=== PATIENT | male | born 1960 | race Caucasian/White ===

== ENCOUNTER 2018-07-30 18:24 | Emergency (ER) | payer MEDICAID ==
[2018-07-30] MEDS ORDERED: predniSONE 20 MG Tab PO ONE (18:25)
[2018-07-30] MEDS ORDERED: Azithromycin 250 MG Tab PO ONE (18:25)
[2018-07-30] MEDS ORDERED: Albuterol/Ipratropium 3.0-0.5 MG/3 ML Neb Soln NEB ONE (18:35)
[2018-07-30] MEDS ORDERED: methylPREDNISolone Sodium Succinate 125 MG/2 ML SDV IVPUSH ONE (18:37)
--- NOTE | 2018-07-30 18:42 | EDM.PDOC ---
ED HPI GENERAL MEDICAL PROBLEM - General Stated Complaint: SOB Time Seen by Provider: 07/30/18 18:24 Source of Information: Reports: Patient, Family - History of Present Illness INITIAL COMMENTS - FREE TEXT/NARRATIVE: 57 y.o.w.m with COPD came to the ed due to cough and SOB. Pt is not on home O2. Was using an inhaler at home, which did not help his breathing. No C/P, no N/V/ D or dizziness. No other acute medical issues. BP 129/82 RR 28 Pulse ox 98% on RA Temp 37.4 Pulse 92 Onset: Today Onset Date: 07/30/18 Onset Time: 14:00 Duration: Hour(s):, Getting Worse, Intermittent Location: Reports: Chest Quality: Reports: Dull Severity: Mild Improves with: Reports: Medication, Rest Worsens with: Reports: Movement Context: Reports: Sick Contact, Other (H/O COPD) Associated Symptoms: Reports: Cough, Shortness of Breath - Related Data Allergies Allergy/AdvReac Type Severity Reaction Status Date / Time No Known Allergies Allergy Verified 07/31/18 01:22 Home Meds: Home Meds Albuterol [Proventil HFA] 2 puff INH Q4H PRN 04/20/18 [History] Albuterol/Ipratropium [DuoNeb 3.0-0.5 MG/3 ML] 3 ml .XX QID 04/20/18 [History] Doxepin HCl [Silenor] 3 mg PO BEDTIME PRN 04/20/18 [History] LORazepam [Ativan] 1 mg PO Q4H PRN 04/20/18 [History] Lisinopril [Prinivil] 5 mg PO DAILY 04/20/18 [History] Meloxicam [Mobic] 7.5 mg PO DAILY 04/20/18 [History] amLODIPine Besylate [Norvasc] 2.5 mg PO DAILY 04/20/18 [History] hydrOXYzine pamoate [Vistaril] 25 mg PO DAILY PRN 04/20/18 [History] metFORMIN [Glucophage] 500 mg PO BIDMEALS 04/20/18 [History] Acetaminophen/HYDROcodone [[place] 325-5 MG] 1 - 2 tab PO Q6H PRN #20 tab [Rx] Celecoxib [CeleBREX] 200 mg PO BID #10 cap 04/21/18 [Rx] Docusate Sodium [Colace] 100 mg PO BID #20 capsule 04/21/18 [Rx] Past Medical History HEENT History: Reports: None Cardiovascular History: Reports: Hypertension Respiratory History: Reports: Asthma, COPD, SOB Other Gastrointestinal History: HERNIA Genitourinary History: Reports: Renal Calculus 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 Musculoskeletal History: Reports: Back Pain, Chronic Neurological History: Reports: None Psychiatric History: Reports: Anxiety Endocrine/Metabolic History: Reports: Diabetes, Type II, Obesity/BMI 30+ Hematologic History: Reports: None Immunologic History: Reports: None Oncologic (Cancer) History: Reports: None Dermatologic History: Reports: None - Past Surgical History Head Surgeries/Procedures: Reports: None HEENT Surgical History: Reports: None Musculoskeletal Surgical History: Reports: Shoulder Surgery Social & Family History - Caffeine Use Caffeine Use: Reports: Soda ED ROS GENERAL - Review of Systems Review Of Systems: See Below Constitutional: Reports: No Symptoms HEENT: Reports: No Symptoms Respiratory: Reports: Shortness of Breath, Cough Cardiovascular: Reports: No Symptoms Endocrine: Reports: No Symptoms GI/Abdominal: Reports: No Symptoms : Reports: No Symptoms Musculoskeletal: Reports: No Symptoms Skin: Reports: No Symptoms Neurological: Reports: No Symptoms Psychiatric: Reports: No Symptoms Hematologic/Lymphatic: Reports: No Symptoms Immunologic: Reports: No Symptoms ED EXAM, GENERAL - Physical Exam Exam: See Below Exam Limited By: Respiratory Distress General Appearance: Alert, WD/WN, Mild Distress, Moderate Distress Eye Exam: Bilateral Eye: Normal Inspection Ears: Normal External Exam Ear Exam: Bilateral Ear: Auricle Normal Nose: Normal Inspection, Normal Mucosa Throat/Mouth: Normal Inspection, Normal Lips, Normal Voice, No Airway Compromise Head: Atraumatic, Normocephalic Neck: Normal Inspection, Supple, Non-Tender, Full Range of Motion Respiratory/Chest: Respiratory Distress, Wheezing Cardiovascular: Normal Peripheral Pulses, Regular Rate, Rhythm, No Edema, No Gallop, No Murmur Peripheral Pulses: 1+: Brachial (L) GI/Abdominal: Normal Bowel Sounds, Soft, Non-Tender, No Organomegaly (Male) Exam: Deferred Rectal (Males) Exam: Deferred Back Exam: Normal Inspection Extremities: Normal Inspection, Normal Range of Motion Neurological: Alert, Oriented, CN II-XII Intact, Normal Cognition, Normal Gait Psychiatric: Normal Affect, Normal Mood Skin Exam: Warm, Dry, Intact, Normal Color, No Rash Lymphatic: No Adenopathy Course - Vital Signs Text/Narrative:: 57 y.o.w.m with COPD came to the ed due to cough and SOB. Pt is not on home O2. Was using an inhaler at home, which did not help his breathing. No C/P, no N/V/ D or dizziness. No other acute medical issues. BP 129/82 RR 28 Pulse ox 98% on RA Temp 37.4 Pulse 92 PE: WNWD W M ins rep distress Imaging: Pending labs: Pending Impression: Asthma/ COPD exacerbation Tx: Duoneb, Solu Medrol Pt was signed out to Dr. Cowan at 7 pm due to shift changes pending Tx and CXR Last Recorded V/S: Last Vital Signs Temp 37.3 C 07/30/18 20:40 Pulse 79 07/30/18 20:40 Resp 20 07/30/18 20:40 BP 138/78 07/30/18 20:40 Pulse Ox 95 07/30/18 20:40 - Orders/Labs/Meds Orders: Active Orders 24 hr Category Date Time Status EKG Documentation Completion [RC] ASDIRECTED Care 07/30/18 19:30 Active EKG Documentation Completion [RC] ASDIRECTED Care 07/30/18 19:31 Active RT Aerosol Therapy [RC] ASDIRECTED Care 07/30/18 18:35 Active Chest 2V [CR] Stat Exams 07/30/18 19:12 Taken EKG 12 Lead [EK] Routine Ther 07/30/18 19:30 Ordered Labs: Laboratory Tests 07/30/18 07/30/18 07/30/18 Range/Units 19:50 19:50 19:50 WBC 10.2 (4.5-12.0) X10-3/uL RBC 4.85 (4.30-5.75) x10(6)uL Hgb 14.0 (11.5-15.5) g/dL Hct 42.3 (30.0-51.3) % MCV 87.2 (80-96) fL MCH 28.8 (27.7-33.6) pg MCHC 33.0 (32.2-35.4) g/dL RDW 12.8 (11.5-15.5) % Plt Count 315 (125-369) X10(3)uL MPV 8.7 (7.4-10.4) fL Neut % (Auto) 49.7 (46-82) % Lymph % (Auto) 36.0 (13-37) % [place] % (Auto) 8.7 (4-12) % Eos % (Auto) 4 (1.0-5.0) % Baso % (Auto) 1 (0-2) % Neut # (Auto) 5.1 (1.6-8.3) # Lymph # (Auto) 3.7 (0.6-5.0) # [place] # (Auto) 0.9 (0.0-1.3) # Eos # (Auto) 0.4 (0.0-0.8) # Baso # (Auto) 0.1 (0.0-0.2) # Sodium 141 (135-145) mmol/L Potassium 3.4 L (3.5-5.3) mmol/L Chloride 104 (100-110) mmol/L Carbon Dioxide 28 (21-32) mmol/L BUN 16 (7-18) mg/dL Creatinine 1.5 H (0.70-1.30) mg/dL Est Cr Clr Drug Dosing 52.57 mL/min Estimated GFR (MDRD) 48 L (>60) BUN/Creatinine Ratio 10.7 (9-20) Glucose 138 H (80-116) mg/dL Calcium 9.2 (8.6-10.2) mg/dL Total Bilirubin 0.3 (0.1-1.3) mg/dL AST 16 (5-25) IU/L ALT 28 (12-36) U/L Alkaline Phosphatase 104 (56-112) IU/L Troponin I < 0.017 L (<0.017-0.056) ng/mL C-Reactive Protein (0.5-0.9) mg/dL NT-Pro-B Natriuret Pep (<=125) pg/mL Total Protein 7.6 (6.0-8.0) g/dL Albumin 3.4 L (3.5-5.2) g/dL Globulin 4.2 g/dL Albumin/Globulin Ratio 0.8 07/30/18 Range/Units 19:50 WBC (4.5-12.0) X10-3/uL RBC (4.30-5.75) x10(6)uL Hgb (11.5-15.5) g/dL Hct (30.0-51.3) % MCV (80-96) fL MCH (27.7-33.6) pg MCHC (32.2-35.4) g/dL RDW (11.5-15.5) % Plt Count (125-369) X10(3)uL MPV (7.4-10.4) fL Neut % (Auto) (46-82) % Lymph % (Auto) (13-37) % [place] % (Auto) (4-12) % Eos % (Auto) (1.0-5.0) % Baso % (Auto) (0-2) % Neut # (Auto) (1.6-8.3) # Lymph # (Auto) (0.6-5.0) # [place] # (Auto) (0.0-1.3) # Eos # (Auto) (0.0-0.8) # Baso # (Auto) (0.0-0.2) # Sodium (135-145) mmol/L Potassium (3.5-5.3) mmol/L Chloride (100-110) mmol/L Carbon Dioxide (21-32) mmol/L BUN (7-18) mg/dL Creatinine (0.70-1.30) mg/dL Est Cr Clr Drug Dosing mL/min Estimated GFR (MDRD) (>60) BUN/Creatinine Ratio (9-20) Glucose (80-116) mg/dL Calcium (8.6-10.2) mg/dL Total Bilirubin (0.1-1.3) mg/dL AST (5-25) IU/L ALT (12-36) U/L Alkaline Phosphatase (56-112) IU/L Troponin I (<0.017-0.056) ng/mL C-Reactive Protein 0.8 (0.5-0.9) mg/dL NT-Pro-B Natriuret Pep 72 (<=125) pg/mL Total Protein (6.0-8.0) g/dL Albumin (3.5-5.2) g/dL Globulin g/dL Albumin/Globulin Ratio Meds: Medications Discontinued Medications Generic Name Dose Route Start Last Admin Trade Name Lisa PRN Reason Stop Dose Admin Albuterol/Ipratropium 3 ml 07/30/18 18:35 07/30/18 18:25 Duoneb 3.0-0.5 Mg/3 Ml NEB 07/30/18 18:36 3 ml ONETIME ONE Administration Methylprednisolone Sodium Succinate 125 mg 07/30/18 18:37 07/30/18 19:22 Solu-Medrol IVPUSH 07/30/18 18:38 125 mg ONETIME ONE Administration Departure - Departure Time of Disposition: 20:00 Disposition: Home, Self-Care 01 Condition: Good Clinical Impression: Asthma - Discharge Information Instructions: Chronic Obstructive Pulmonary Disease, [id number], Azithromycin tablets, Prednisone tablets Referrals: Seugn Zaldivar MD [Primary Care Provider] - 08/03/18 Forms: ED Department Discharge Additional Instructions: PRednisone 20 mg twice a day Zpak please take 2 tabs tonight and 1tab daily follow up with your primary care as needed - My Orders Last 24 Hours: My Active Orders 07/30/18 18:35 RT Aerosol Therapy [RC] ASDIRECTED 07/30/18 19:12 Chest 2V [CR] Stat - Assessment/Plan Last 24 Hours: My Active Orders 07/30/18 18:35 RT Aerosol Therapy [RC] ASDIRECTED 07/30/18 19:12 Chest 2V [CR] Stat
--- NOTE | 2018-07-31 08:17 | ER ---
DATE SEEN: 07/30/2018 REASON FOR VISIT: Cough. HISTORY OF PRESENT ILLNESS: This is an addendum to a patient, Martínez Ortega, whom Dr. Clayton had seen earlier. He came in with complaints of a cough, paroxysmal, nonproductive, going on about 2 to 3 days, associated with bronchospasm, and he has used nebulizer about 6 times today. He complains of no fever or chills, and is not short of breath. He does have some wheezing. PAST MEDICAL HISTORY: COPD. ALLERGIES: None. SOCIAL HISTORY: Smoker, quit several years ago. PHYSICAL EXAMINATION: GENERAL: He is not in distress. VITAL SIGNS: He has a normal blood pressure. Oxygenation is normal and temp is 99.4. ENT: Normal. NECK: Supple. CARDIOVASCULAR: Normal. RESPIRATORY: End-expiratory rhonchi bilaterally. LABS: CBC, troponin negative. Chest x-ray and EKG were normal. IMPRESSION: Chronic obstructive pulmonary disease exacerbation. TREATMENT: He was given 1 DuoNeb and Solu-Medrol. I sent him home on a Z-Bruno and prednisone. I advised him to see his physician on Friday. Return to the ED with worsening symptoms. /[id number] LAURA/BATSHEVA
--- NOTE | 2018-07-31 12:35 | CR ---
INDICATION: Cough, shortness of breath. CHEST: PA and lateral views of the chest were obtained 07/30/18 - no comparisons. The heart appeared normal in size and shape. Minimal calcification is noted in the arch of the aorta. A mild dextroconvex scoliosis of the upper middle thoracic spine is noted. A definite active infiltrate or effusion - consolidating pneumonia or effusion - was not identified. However, markings are somewhat heavy at the lung bases, making it difficult to exclude a minimal patchy bronchopneumonia. IMPRESSION: 1. No definite acute process but difficult to exclude minimal patchy bronchopneumonia at the lung bases. 2. Mild scoliosis. 3. ASD aorta. MTDD
== END 2018-07-30 20:42 | disposition home or self-care (01) ==
LOC: FB.ED 18:24
DX: J44.1 Chronic obstructive pulmonary disease with (acute) exacerbation (principal); Z87.891 Personal history of nicotine dependence
CPT/HCPCS: 36415; 71046; 80053; 83880; 84484; 85025; 86140; 93005; 94640; 96374; 99285; A9270; J2930; J7620-GY

== ENCOUNTER 2018-11-23 08:57 | Day surgery (SDC) | payer MEDICAID ==
[2018-11-23] MEDS ORDERED: Lidocaine 2% 100 MG/5 ML Syringe IVPUSH ONE (08:58)
[2018-11-23] MEDS ORDERED: Dexamethasone 4 MG/ML SDV IVPUSH ONE (08:58)
[2018-11-23] MEDS ORDERED: Propofol 200 MG/20 ML SDV IV ONE (08:58)
[2018-11-23] MEDS ORDERED: Lactated Ringers 1,000 ML IV SCH (09:00)
[2018-11-23] MEDS ORDERED: Albuterol/Ipratropium 3.0-0.5 MG/3 ML Neb Soln NEB ONE (09:56)
--- NOTE | 2018-11-23 11:26 | PCM.OPNOTE ---
- General Post-Op/Procedure Note Date of Surgery/Procedure: 11/23/18 Operative Procedure(s): egd with bx. c scope with bx Findings: gastroduodenitis esophagitis descending colon polyp Pre Op Diagnosis: dysphagia. need for colon cancer screening Post-Op Diagnosis: gastroduodenitis. esophagitis. descending colon polyp Anesthesia Technique: MAC Primary Surgeon: Walter Jessica Anesthesia Provider: Wyatt Torrez ([facility] CRNA[facility]) Pathology: stomach duodenum and esophagus colon polyp Complications: None Condition: Good Free Text/Narrative:: see dictation
--- NOTE | 2018-11-23 17:01 | OR ---
DATE OF OPERATION: 11/23/2018 SURGEON: Walter Jessica MD PROCEDURE PERFORMED: EGD with cold forceps biopsy and colonoscopy with cold forceps biopsy. PREOPERATIVE DIAGNOSES: History of dysphagia and need for colon cancer screening. POSTOPERATIVE DIAGNOSES: Gastroduodenitis and esophagitis and a polyp of the descending colon. INDICATIONS FOR PROCEDURE: This is a 58-year-old white male who presented with the above-mentioned complaints. DESCRIPTION OF OPERATION: After an excellent IV sedation was administered, the bite block was inserted. The flexible endoscope was passed without difficulty down the patient's esophagus into the stomach. The stomach was insufflated, scope passed through the pylorus to the second portion of duodenum and slowly withdrawn. The following findings were noted. Friable duodenal mucosa noted, biopsied and submitted in a container. Some mild gastritis was noted in the area of the antrum. Biopsies were taken. Esophagus, GE junction measured approximately 40 cm. There was some evidence of some mild esophagitis and biopsies were taken. The remainder of the esophageal exam was unremarkable. The stomach was deflated, scope was removed. Our attention was turned to the colon. Digital rectal exam was performed. No marked abnormality was noted. Flexible colonoscope was inserted and advanced to the cecum. The prep was good. There were some areas of clear liquid that we had to aspirate, but we got a good view of the mucosa. The following findings were noted. Ascending colon, unremarkable. Transverse colon, unremarkable. Descending colon, small 5 mm polypoid lesion, biopsied and sent for permanent. Sigmoid and rectum, unremarkable. Colon was deflated, scope was removed. The patient tolerated the procedure well, was taken to recovery in good condition. Results by letter. /[id number] /MODL
== END 2018-11-23 12:31 | disposition home or self-care (01) ==
LOC: FB.SDS 08:57
PROVIDERS: ATTEND Surgery
DX: Z12.11 Encounter for screening for malignant neoplasm of colon (principal); D12.4 Benign neoplasm of descending colon; K29.80 Duodenitis without bleeding; K21.0 Gastro-esophageal reflux disease with esophagitis; K31.89 Other diseases of stomach and duodenum; I10 Essential (primary) hypertension; I25.10 Atherosclerotic heart disease of native coronary artery without angina pectoris; E11.9 Type 2 diabetes mellitus without complications; J44.9 Chronic obstructive pulmonary disease, unspecified; F41.9 Anxiety disorder, unspecified; M41.9 Scoliosis, unspecified; Z87.891 Personal history of nicotine dependence; Z79.1 Long term (current) use of non-steroidal anti-inflammatories (NSAID); Z79.51 Long term (current) use of inhaled steroids; Z79.84 Long term (current) use of oral hypoglycemic drugs; Z79.899 Other long term (current) drug therapy
CPT/HCPCS: 82962; 88305; 88313; 88342; J1100; J2001; J2704; J7120; J7620-GY

== ENCOUNTER 2019-01-20 10:03 | Observation (INO) | payer MEDICAID ==
[2019-01-20] MEDS ORDERED: methylPREDNISolone Sodium Succinate 125 MG/2 ML SDV IVPUSH ONE (10:24)
[2019-01-20] MEDS ORDERED: Albuterol/Ipratropium 3.0-0.5 MG/3 ML Neb Soln NEB ONE ×2 (10:24→11:53)
--- NOTE | 2019-01-20 10:26 | EDM.PDOC ---
ED HPI GENERAL MEDICAL PROBLEM - General Stated Complaint: CHEAT PAIN Time Seen by Provider: 01/20/19 10:03 Source of Information: Reports: Patient, EMS History Limitations: Reports: Respiratory Distress - History of Present Illness INITIAL COMMENTS - FREE TEXT/NARRATIVE: 58 y.o.w.m came to the ed because of CP and SOB by EMS. Pt is a poor historian. Pt can speak 3 word sentences. CP is located at the mid of his chest. No Trauma. Pt has H/O COPD. No N/V/D no other acute med. issues. BP RR 21 Pulse ox 95% on RA Pulse 85 Temp 36.4 Onset Date: 01/19/19 Onset Time: 16:00 Duration: Day(s):, Getting Worse, Intermittent Location: Reports: Chest Quality: Reports: Dull Severity: Moderate Improves with: Reports: Medication Worsens with: Reports: Movement Context: Reports: Other Associated Symptoms: Reports: Chest Pain, Cough, Shortness of Breath MID CHEST Pain Score (Numeric/FACES): 4 - Related Data Allergies Allergy/AdvReac Type Severity Reaction Status Date / Time No Known Allergies Allergy Verified 01/20/19 13:55 Home Meds: Home Meds Albuterol [Proventil HFA] 2 puff INH Q4H PRN 04/20/18 [History] Albuterol/Ipratropium [DuoNeb 3.0-0.5 MG/3 ML] 3 ml .XX QID PRN 04/20/18 [ History] Lisinopril [Prinivil] 5 mg PO DAILY 04/20/18 [History] amLODIPine Besylate [Norvasc] 2.5 mg PO DAILY 04/20/18 [History] hydrOXYzine pamoate [Vistaril] 25 - 50 mg PO DAILY PRN 04/20/18 [History] metFORMIN [Glucophage] 500 mg PO BIDMEALS 04/20/18 [History] Acetaminophen/HYDROcodone [[place] 325-5 MG] 1 - 2 tab PO Q6H PRN #20 tab [Rx] Budesonide/Formoterol Fumarate [Symbicort 80-4.5 Mcg Inhaler] 2 puff INH BID [History] Celecoxib [CeleBREX] 200 mg PO DAILY 11/19/18 [History] Pantoprazole [ProTONIX] 40 mg PO DAILY 01/20/19 [History] Past Medical History HEENT History: Reports: None Cardiovascular History: Reports: Hypertension Respiratory History: Reports: COPD Other Gastrointestinal History: HERNIA Genitourinary History: Reports: Renal Calculus 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 Musculoskeletal History: Reports: Back Pain, Chronic Neurological History: Reports: None Psychiatric History: Reports: Anxiety Endocrine/Metabolic History: Reports: Diabetes, Type II Hematologic History: Reports: None Immunologic History: Reports: None Oncologic (Cancer) History: Reports: None Dermatologic History: Reports: None - Past Surgical History GI Surgical History: Reports: Hernia Repair/Other Musculoskeletal Surgical History: Reports: Shoulder Surgery Social & Family History - Family History Family Medical History: Noncontributory - Caffeine Use Caffeine Use: Reports: Soda, Tea ED ROS GENERAL - Review of Systems Review Of Systems: See Below Constitutional: Reports: Weakness HEENT: Reports: No Symptoms Respiratory: Reports: Shortness of Breath Cardiovascular: Reports: Chest Pain Endocrine: Reports: No Symptoms GI/Abdominal: Reports: No Symptoms : Reports: No Symptoms Musculoskeletal: Reports: No Symptoms Skin: Reports: No Symptoms Neurological: Reports: No Symptoms Psychiatric: Reports: No Symptoms Hematologic/Lymphatic: Reports: No Symptoms Immunologic: Reports: No Symptoms ED EXAM, GENERAL - Physical Exam Exam: See Below Exam Limited By: Respiratory Distress General Appearance: Alert, WD/WN, Moderate Distress, Obese Eye Exam: Bilateral Eye: Normal Inspection Ears: Normal External Exam Ear Exam: Bilateral Ear: Auricle Normal Nose: Normal Inspection, Normal Mucosa Throat/Mouth: Normal Inspection, Normal Lips, Normal Voice, No Airway Compromise Head: Atraumatic, Normocephalic Neck: Normal Inspection, Supple, Non-Tender, Full Range of Motion Respiratory/Chest: Respiratory Distress, Decreased Breath Sounds, Rhonchi, Wheezing Cardiovascular: Normal Peripheral Pulses, Regular Rate, Rhythm, No Edema Peripheral Pulses: 2+: Brachial (R) GI/Abdominal: Normal Bowel Sounds, Soft, Non-Tender (Male) Exam: Deferred Rectal (Males) Exam: Deferred Back Exam: Normal Inspection, Full Range of Motion Extremities: Normal Inspection, Normal Range of Motion, Non-Tender Neurological: Alert, Oriented, CN II-XII Intact, Normal Cognition Psychiatric: Normal Affect, Normal Mood Skin Exam: Warm, Dry, Intact, Normal Color Lymphatic: No Adenopathy EKG INTERPRETATION EKG Date: 01/20/19 Time: 10:05 Rhythm: NSR Rate (Beats/Min): 74 [place]: Normal P-Wave: Present QRS: Normal ST-T: Normal QT: Normal Comparison: NA - No Prior EKG Course - Vital Signs Text/Narrative:: 58 y.o.w.m came to the ed because of CP and SOB by EMS. Pt is a poor historian. Pt can speak 3 word sentences. CP is located at the mid of his chest. No Trauma. Pt has H/O COPD. No N/V/D no other acute med. issues. BP 11/67 RR 21 Pulse ox 95% on RA Pulse 85 Temp 36.4 PE: Morbid obese 58 y.o w m with SOB and CP Imaging: CXR: NAD Labs: CBC, BMP nl except BUN was 19 Ca was 7.7 Troponin was 0.017 Impression: Atypical Chest pain, COPD exacerbation Tx: ASA, Nitro, Toradol, Duonebs x 2 Solumedrol Reexam: C/P 08/02. Resp minimally improved 12.55 pm Consultation: Dr. Estevez, Hospitalist: accepted the pt for admission Plan: Admit to [facility] Last Recorded V/S: Last Vital Signs Temp 36.6 C 01/20/19 13:16 Pulse 83 01/20/19 13:16 Resp 20 01/20/19 13:16 BP 118/72 01/20/19 13:16 Pulse Ox 96 01/20/19 13:16 - Orders/Labs/Meds Orders: Active Orders 24 hr Category Date Time Status Chest 1V Frontal [CR] Stat Exams 01/20/19 10:24 Taken Sodium Chloride 0.9% [Saline Flush] Med 01/20/19 10:49 Active 10 ml FLUSH ASDIRECTED PRN EKG 12 Lead [EK] Routine Ther 01/20/19 10:05 Ordered Medication Orders Sodium Chloride (Saline Flush) 10 ml FLUSH ASDIRECTED PRN PRN Reason: IV Use Last Admin: 01/20/19 12:12 Dose: 10 ml Admin: 01/20/19 10:45 Dose: 10 ml Labs: Laboratory Tests 01/20/19 01/20/19 01/20/19 Range/Units 10:05 10:05 10:05 WBC 8.0 (4.5-12.0) X10-3/uL RBC 4.62 (4.30-5.75) x10(6)uL Hgb 13.8 (13.5-17.8) g/dL Hct 40.6 (30.0-51.3) % MCV 87.8 (80-96) fL MCH 29.8 (27.7-33.6) pg MCHC 34.0 (32.2-35.4) g/dL RDW 12.6 (11.5-15.5) % Plt Count 251 (125-369) X10(3)uL MPV 9.0 (7.4-10.4) fL Neut % (Auto) 43.8 L (46-82) % Lymph % (Auto) 44.5 H (13-37) % [place] % (Auto) 8.0 (4-12) % Eos % (Auto) 3 (1.0-5.0) % Baso % (Auto) 1 (0-2) % Neut # (Auto) 3.5 (1.6-8.3) # Lymph # (Auto) 3.6 (0.6-5.0) # [place] # (Auto) 0.6 (0.0-1.3) # Eos # (Auto) 0.2 (0.0-0.8) # Baso # (Auto) 0.1 (0.0-0.2) # PT 9.7 (8.7-11.1) INR 1.00 (0.89-1.13) D-Dimer, Quantitative (0.0-0.59) mg/LFEU Sodium 143 (135-145) mmol/L Potassium 3.9 (3.5-5.3) mmol/L Chloride 108 (100-110) mmol/L Carbon Dioxide 27 (21-32) mmol/L BUN 19 H (7-18) mg/dL Creatinine 1.3 (0.70-1.30) mg/dL Est Cr Clr Drug Dosing 59.92 mL/min Estimated GFR (MDRD) 57 L (>60) BUN/Creatinine Ratio 14.6 (9-20) Glucose 103 (80-116) mg/dL Calcium 7.7 L (8.6-10.2) mg/dL Troponin I (<0.017-0.056) ng/mL 01/20/19 01/20/19 Range/Units 10:05 10:05 WBC (4.5-12.0) X10-3/uL RBC (4.30-5.75) x10(6)uL Hgb (13.5-17.8) g/dL Hct (30.0-51.3) % MCV (80-96) fL MCH (27.7-33.6) pg MCHC (32.2-35.4) g/dL RDW (11.5-15.5) % Plt Count (125-369) X10(3)uL MPV (7.4-10.4) fL Neut % (Auto) (46-82) % Lymph % (Auto) (13-37) % [place] % (Auto) (4-12) % Eos % (Auto) (1.0-5.0) % Baso % (Auto) (0-2) % Neut # (Auto) (1.6-8.3) # Lymph # (Auto) (0.6-5.0) # [place] # (Auto) (0.0-1.3) # Eos # (Auto) (0.0-0.8) # Baso # (Auto) (0.0-0.2) # PT (8.7-11.1) INR (0.89-1.13) D-Dimer, Quantitative 0.20 (0.0-0.59) mg/LFEU Sodium (135-145) mmol/L Potassium (3.5-5.3) mmol/L Chloride (100-110) mmol/L Carbon Dioxide (21-32) mmol/L BUN (7-18) mg/dL Creatinine (0.70-1.30) mg/dL Est Cr Clr Drug Dosing mL/min Estimated GFR (MDRD) (>60) BUN/Creatinine Ratio (9-20) Glucose (80-116) mg/dL Calcium (8.6-10.2) mg/dL Troponin I < 0.017 L (<0.017-0.056) ng/mL Meds: Medications Generic Name Dose Route Start Last Admin Trade Name Freq PRN Reason Stop Dose Admin Sodium Chloride 10 ml 01/20/19 10:49 01/20/19 12:12 Saline Flush FLUSH 10 ml ASDIRECTED PRN Administration IV Use Discontinued Medications Generic Name Dose Route Start Last Admin Trade Name Lisa PRN Reason Stop Dose Admin Albuterol/Ipratropium 3 ml 01/20/19 10:24 01/20/19 10:45 Duoneb 3.0-0.5 Mg/3 Ml NEB 01/20/19 10:25 3 ml ONETIME ONE Administration Albuterol/Ipratropium 3 ml 01/20/19 11:53 01/20/19 12:10 Duoneb 3.0-0.5 Mg/3 Ml NEB 01/20/19 11:54 3 ml ONETIME ONE Administration Calcium Carbonate/Glycine 1,000 mg 01/20/19 11:40 01/20/19 11:46 Tums PO 01/20/19 11:41 1,000 mg ONETIME ONE Administration Ketorolac Tromethamine 30 mg 01/20/19 11:55 01/20/19 12:12 Toradol IVPUSH 01/20/19 11:56 30 mg ONETIME ONE Administration Magnesium Chloride 64 mg 01/20/19 11:39 01/20/19 11:42 Mag-64 PO 01/20/19 11:40 Not Given ONETIME STA Methylprednisolone Sodium Succinate 125 mg 01/20/19 10:24 01/20/19 10:45 Solu-Medrol IVPUSH 01/20/19 10:25 125 mg ONETIME ONE Administration Nitroglycerin 1 gm 01/20/19 11:48 01/20/19 12:14 Nitro-Bid 2% TOP 01/20/19 11:49 1 gm ONETIME ONE Administration Departure - Departure Time of Disposition: 15:00 Disposition: Refer to Observation Condition: Fair Clinical Impression: COPD with exacerbation - My Orders Last 24 Hours: My Active Orders 01/20/19 10:05 EKG 12 Lead [EK] Routine 01/20/19 10:24 Chest 1V Frontal [CR] Stat 01/20/19 10:49 Sodium Chloride 0.9% [Saline Flush] 10 ml FLUSH ASDIRECTED PRN - Assessment/Plan Last 24 Hours: My Active Orders 01/20/19 10:05 EKG 12 Lead [EK] Routine 01/20/19 10:24 Chest 1V Frontal [CR] Stat 07/31/19 10:49 Sodium Chloride 0.9% [Saline Flush] 10 ml FLUSH ASDIRECTED PRN
[2019-01-20] MEDS: Sodium Chloride 0.9% 10 ML Syringe FLUSH PRN ×3 (10:45→20:40)
[2019-01-20] MEDS ORDERED: Magnesium Chloride 64 MG Tab.ER PO STA (11:39)
[2019-01-20] MEDS ORDERED: Calcium Carbonate 500 MG Tab.Chew PO ONE (11:40)
[2019-01-20] MEDS ORDERED: Nitroglycerin 2% Oint 1 GM UD Packet TOP ONE (11:48)
[2019-01-20] MEDS ORDERED: Ketorolac 30 MG/ML SDV IVPUSH ONE (11:55)
[2019-01-20] MEDS ORDERED: Albuterol 8 GM Inhaler INH PRN (15:22)
[2019-01-20] MEDS ORDERED: Albuterol/Ipratropium 3.0-0.5 MG/3 ML Neb Soln INH PRN (15:22)
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
[2019-01-20] MEDS: metFORMIN 500 MG Tab PO SCH (18:24)
[2019-01-20] MEDS: Formoterol/Mometasone 100-5 MCG 8.8 GM Inhaler IH SCH (20:35)
[2019-01-21] MEDS ORDERED: Morphine 2 MG/ML Syringe IVPUSH ONE (04:47)
[2019-01-21] MEDS: Sodium Chloride 0.9% 10 ML Syringe FLUSH PRN (05:07)
[2019-01-21] MEDS ORDERED: Pantoprazole 40 MG Tab.CR PO SCH (06:00)
[2019-01-21] MEDS ORDERED: Lisinopril 5 MG Tab PO SCH (09:00)
[2019-01-21] MEDS ORDERED: amLODIPine 2.5 MG Tab PO SCH (09:00)
[2019-01-21] MEDS ORDERED: Isosorbide Mononitrate 30 MG Tab.ER PO SCH (09:00)
[2019-01-21] MEDS: metFORMIN 500 MG Tab PO SCH (09:10)
[2019-01-21] MEDS: Formoterol/Mometasone 100-5 MCG 8.8 GM Inhaler IH SCH (09:10)
--- NOTE | 2019-01-21 19:47 | DISCH ---
DISCHARGE DATE: 01/21/2019 HISTORY: Martínez is a 58-year-old man with a longstanding history of COPD, chronic liver disease and unspecified arrhythmic heart problems. He was admitted through the ER because of awakening in the morning with substernal chest pain and shortness of breath. Evaluation with EKG and troponin in the ER was negative and it was felt to be lung related. He was admitted to observation care, treated with nebulizer treatments, and his outpatient medications continued. A nitroglycerin patch was applied, and his pain seemed to resolve. He spent a good night, but woke up this morning with similar substernal chest pain. He did not have significant shortness of breath with it. No nausea, sweats, etc. Repeat EKG and troponin are again negative and examination showed significant tenderness in the chest wall at the sternocostal joints 2 and 3 bilaterally. Remainder of his exam was quite unremarkable. He was up walking and comfortable. He was started on Imdur 30 mg daily and naproxen 500 mg b.i.d. along with his usual medications. After being up, he was deemed acceptable for discharge. Arrangements are made for him to have a followup stress test at [facility]. He is to check in with his regular doctor in the meantime if any significant recurrence of his chest pains. /[id number] AAKASH/BATSHEVA
== END 2019-01-21 11:30 | disposition home or self-care (01) ==
LOC: FB.ED 10:03 → FB.MS 12:55
PROVIDERS: ADMIT Family Medicine; ATTEND Family Medicine
DX: R07.2 Precordial pain (principal); I10 Essential (primary) hypertension; E11.9 Type 2 diabetes mellitus without complications; K21.9 Gastro-esophageal reflux disease without esophagitis; K70.9 Alcoholic liver disease, unspecified; M16.0 Bilateral primary osteoarthritis of hip; J43.9 Emphysema, unspecified; E66.01 Morbid (severe) obesity due to excess calories; Z68.30 Body mass index [BMI] 30.0-30.9, adult; Z87.891 Personal history of nicotine dependence; Z82.49 Family history of ischemic heart disease and other diseases of the circulatory system; Z79.51 Long term (current) use of inhaled steroids; Z79.84 Long term (current) use of oral hypoglycemic drugs; Z79.899 Other long term (current) drug therapy
CPT/HCPCS: 36415; 71045; 80048; 80076; 84484; 85025; 85379; 85610; 93005; 94640; 96374; 96375; 99285; A9270; G0378; J1885; J2270; J2930; J7620-GY

== ENCOUNTER 2019-01-30 15:11 | Emergency (ER) | payer MEDICAID ==
--- NOTE | 2019-01-30 15:35 | EDM.PDOC ---
ED HPI GENERAL MEDICAL PROBLEM - General Stated Complaint: CHEST PAIN Time Seen by Provider: 01/30/19 15:33 Source of Information: Reports: Patient History Limitations: Reports: No Limitations - History of Present Illness INITIAL COMMENTS - FREE TEXT/NARRATIVE: 58-year-old male with intermittent pressure type central chest pain that sometimes radiates through to his back which is been present for the past 2-2-1/ 2 weeks. He was admitted to the hospital here on 01/20/2019 for chest pain and ruled out for AK. It was felt that he had chest wall pain. He tells me that for the past 9-10 days he has continued to have intermittent pains in his central chest that radiates through to his back. He reports that at 3 AM, he was awakened with pain in the center of his chest that he reports is been a steady and constant /10 since 3 AM today. He does not feel that anything makes the pain better. He thinks the pain may be somewhat worse with deep breath but not with palpation or with movement. He has had nausea associated with this but no vomiting. There's been no diaphoresis. No increase in his usual shortness of breath. No cough. Above his normal cough and no fevers and chills. There are no other associated signs or symptoms. There are no other modifying factors. 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 OIL WELL: Reports: Other (see below) (Nothing) MID CHEST Pain Score (Numeric/FACES): 6 - Related Data Allergies Allergy/AdvReac Type Severity Reaction Status Date / Time No Known Allergies Allergy Verified 01/30/19 15:41 Home Meds: Home Meds Albuterol [Proventil HFA] 2 puff INH Q4H PRN 04/20/18 [History] Albuterol/Ipratropium [DuoNeb 3.0-0.5 MG/3 ML] 3 ml .XX QID PRN 04/20/18 [ History] Lisinopril [Prinivil] 5 mg PO DAILY 04/20/18 [History] amLODIPine Besylate [Norvasc] 2.5 mg PO DAILY 04/20/18 [History] metFORMIN [Glucophage] 500 mg PO BIDMEALS 04/20/18 [History] Budesonide/Formoterol Fumarate [Symbicort 80-4.5 Mcg Inhaler] 2 puff INH BID [History] Celecoxib [CeleBREX] 200 mg PO DAILY 11/19/18 [History] Pantoprazole [ProTONIX] 40 mg PO DAILY 01/20/19 [History] Isosorbide Mononitrate [Imdur] 30 mg PO DAILY #30 tab.er 01/21/19 [Rx] Past Medical History Cardiovascular History: Reports: High Cholesterol, Hypertension Respiratory History: Reports: COPD Gastrointestinal History: Reports: Other (See Below) (Alcohol related liver disease) Genitourinary History: Reports: Renal Calculus Musculoskeletal History: Reports: Back Pain, Chronic Psychiatric History: Reports: Addiction (Alcohol abuse in the past but has been sober for the past year.), Anxiety, Depression Endocrine/Metabolic History: Reports: Diabetes, Type II - Past Surgical History GI Surgical History: Reports: Hernia, Abdominal (Umbilical hernia repair) Musculoskeletal Surgical History: Reports: Shoulder Surgery (Left shoulder surgery) Social & Family History - Tobacco Use Smoking Status *Q: Former Smoker (Nonsmoker for the past 20 years.) - Caffeine Use Caffeine Use: Reports: Soda, Tea - Alcohol Use Alcohol Use History: Yes Alcohol Use Comment: Sober for the past one year. - Living Situation & Occupation Occupation: Retired Social History Comment: Here with his . He is originally from [place], [place]. ED ROS GENERAL - Review of Systems Review Of Systems: See Below Constitutional: Reports: No Symptoms HEENT: Reports: No Symptoms Respiratory: Reports: Shortness of Breath (Which is chronic.), Cough (Which is chronic.) Cardiovascular: Reports: Chest Pain GI/Abdominal: Reports: Nausea. Denies: Abdominal Pain, Vomiting : Reports: No Symptoms Musculoskeletal: Reports: Back Pain (Pain radiates from his chest to his mid back.) Skin: Reports: No Symptoms Neurological: Reports: No Symptoms Hematologic/Lymphatic: Reports: No Symptoms Immunologic: Reports: No Symptoms ED EXAM, GENERAL - Physical Exam Exam: See Below Exam Limited By: No Limitations General Appearance: Alert, WD/WN, Mild Distress Eye Exam: Bilateral Eye: EOMI, Normal Inspection Ears: Normal External Exam Ear Exam: Bilateral Ear: Auricle Normal Nose: Normal Inspection, Normal Mucosa, No Blood Throat/Mouth: Normal Inspection, Normal Oropharynx, Normal Voice, No Airway Compromise Head: Atraumatic, Normocephalic Neck: Normal Inspection, Supple, Non-Tender, Full Range of Motion Respiratory/Chest: No Respiratory Distress, Normal Breath Sounds, No Accessory Muscle Use, Wheezing (Few scattered wheezes that clear with cough. No increased work of breathing.) Cardiovascular: Normal Peripheral Pulses, Regular Rate, Rhythm, No Edema, Other (Chest is mildly tender with palpation along his sternal border and in his lower chest.) Peripheral Pulses: 2+: Radial (L), Radial (R), Dorsalis Pedis (L), Dorsalis Pedis (R) GI/Abdominal: Normal Bowel Sounds, Soft, Non-Tender, No Mass Back Exam: Normal Inspection, Full Range of Motion Extremities: Normal Inspection, Normal Range of Motion, Non-Tender, No Pedal Edema, Normal Capillary Refill Neurological: Alert, Oriented, CN II-XII Intact, Normal Cognition, No Motor/ Sensory Deficits Psychiatric: Normal Affect Skin Exam: Warm, Dry, Intact, Normal Color, No Rash EKG INTERPRETATION EKG Date: 01/30/19 Time: 15:17 Rhythm: NSR Rate (Beats/Min): 73 Hessel: Normal P-Wave: Present QRS: Normal ST-T: Normal QT: Normal Comparison: No Change (No change from EKG performed on 01/20/2019. This EKG today was a normal EKG.) Course - Vital Signs Last Recorded V/S: Last Vital Signs Temp 36.6 C 01/30/19 15:12 Pulse 79 01/30/19 15:12 Resp 17 01/30/19 15:12 BP 118/80 01/30/19 15:12 Pulse Ox 97 01/30/19 15:12 - Orders/Labs/Meds Orders: Active Orders 24 hr Category Date Time Status EKG Documentation Completion [RC] ASDIRECTED Care 01/30/19 16:06 Active Chest 1V Frontal [CR] Stat Exams 01/30/19 16:09 Taken Sodium Chloride 0.9% [Saline Flush] Med 01/30/19 16:05 Active 10 ml FLUSH ASDIRECTED PRN Peripheral IV Insertion Adult [OM.PC] Routine Oth 01/30/19 16:05 Ordered EKG 12 Lead [EK] Routine Ther 01/30/19 16:05 Ordered Medication Orders Sodium Chloride (Saline Flush) 10 ml FLUSH ASDIRECTED PRN PRN Reason: Keep Vein Open Last Admin: 01/30/19 16:25 Dose: 10 ml Labs: Laboratory Tests 01/30/19 01/30/19 01/30/19 Range/Units 16:25 16:25 16:25 WBC 7.2 (4.5-12.0) X10-3/uL RBC 4.86 (4.30-5.75) x10(6)uL Hgb 14.6 (13.5-17.8) g/dL Hct 43.2 (30.0-51.3) % MCV 88.9 (80-96) fL MCH 30.0 (27.7-33.6) pg MCHC 33.8 (32.2-35.4) g/dL RDW 12.9 (11.5-15.5) % Plt Count 260 (125-369) X10(3)uL MPV 8.8 (7.4-10.4) fL Neut % (Auto) 55.6 (46-82) % Lymph % (Auto) 28.2 (13-37) % [place] % (Auto) 10.3 (4-12) % Eos % (Auto) 2 (1.0-5.0) % Baso % (Auto) 4 H (0-2) % Neut # (Auto) 4.1 (1.6-8.3) # Lymph # (Auto) 2.0 (0.6-5.0) # [place] # (Auto) 0.7 (0.0-1.3) # Eos # (Auto) 0.1 (0.0-0.8) # Baso # (Auto) 0.3 H (0.0-0.2) # PT (8.7-11.1) INR (0.89-1.13) APTT 24.3 L (24.4-33.2) SECONDS D-Dimer, Quantitative 0.44 (0.0-0.59) mg/LFEU Sodium 145 (135-145) mmol/L Potassium 4.4 (3.5-5.3) mmol/L Chloride 108 (100-110) mmol/L Carbon Dioxide 27 (21-32) mmol/L BUN 17 (7-18) mg/dL Creatinine 1.3 (0.70-1.30) mg/dL Est Cr Clr Drug Dosing 59.92 mL/min Estimated GFR (MDRD) 57 L (>60) BUN/Creatinine Ratio 13.1 (9-20) Glucose 100 (80-116) mg/dL Calcium 9.4 (8.6-10.2) mg/dL Magnesium 2.1 (1.8-2.5) mg/dL Total Bilirubin 0.4 (0.1-1.3) mg/dL AST 23 D (5-25) IU/L ALT 35 (12-36) U/L Alkaline Phosphatase 99 (56-112) IU/L Troponin I (<0.017-0.056) ng/mL Total Protein 7.6 (6.0-8.0) g/dL Albumin 3.5 (3.5-5.2) g/dL Globulin 4.1 g/dL Albumin/Globulin Ratio 0.9 01/30/19 01/30/19 Range/Units 16:25 16:25 WBC (4.5-12.0) X10-3/uL RBC (4.30-5.75) x10(6)uL Hgb (13.5-17.8) g/dL Hct (30.0-51.3) % MCV (80-96) fL MCH (27.7-33.6) pg MCHC (32.2-35.4) g/dL RDW (11.5-15.5) % Plt Count (125-369) X10(3)uL MPV (7.4-10.4) fL Neut % (Auto) (46-82) % Lymph % (Auto) (13-37) % [place] % (Auto) (4-12) % Eos % (Auto) (1.0-5.0) % Baso % (Auto) (0-2) % Neut # (Auto) (1.6-8.3) # Lymph # (Auto) (0.6-5.0) # [place] # (Auto) (0.0-1.3) # Eos # (Auto) (0.0-0.8) # Baso # (Auto) (0.0-0.2) # PT 9.3 (8.7-11.1) INR 0.96 (0.89-1.13) APTT (24.4-33.2) SECONDS D-Dimer, Quantitative (0.0-0.59) mg/LFEU Sodium (135-145) mmol/L Potassium (3.5-5.3) mmol/L Chloride (100-110) mmol/L Carbon Dioxide (21-32) mmol/L BUN (7-18) mg/dL Creatinine (0.70-1.30) mg/dL Est Cr Clr Drug Dosing mL/min Estimated GFR (MDRD) (>60) BUN/Creatinine Ratio (9-20) Glucose (80-116) mg/dL Calcium (8.6-10.2) mg/dL Magnesium (1.8-2.5) mg/dL Total Bilirubin (0.1-1.3) mg/dL AST (5-25) IU/L ALT (12-36) U/L Alkaline Phosphatase (56-112) IU/L Troponin I < 0.017 L (<0.017-0.056) ng/mL Total Protein (6.0-8.0) g/dL Albumin (3.5-5.2) g/dL Globulin g/dL Albumin/Globulin Ratio Meds: Medications Generic Name Dose Route Start Last Admin Trade Name Freq PRN Reason Stop Dose Admin Sodium Chloride 10 ml 01/30/19 16:05 01/30/19 16:25 Saline Flush FLUSH 10 ml ASDIRECTED PRN Administration Keep Vein Open Discontinued Medications Generic Name Dose Route Start Last Admin Trade Name Freq PRN Reason Stop Dose Admin Aspirin 324 mg 01/30/19 16:07 01/30/19 16:16 Aspirin PO 01/30/19 16:08 324 mg ONETIME ONE Administration - Radiology Interpretation Free Text/Narrative:: Portable chest x-ray showed no acute disease. - Re-Assessments/Exams Free Text/Narrative Re-Assessment/Exam: 01/30/19 17:43: Patient still reports that he has chest pain that is a 5 or 6/ 10. The EKG was reassuringly normal. His troponin was normal as well. With the chest pain ongoing for the past 11 hours prior to obtaining the troponin, I feel it AK has been ruled out. In addition his d-dimer was normal as well, which effectively rules out pulmonary emboli. The chest x-ray was normal. I am unsure of the cause of this Miller chest pain but it does not appear to be of a serious nature at this point. He will be discharged and told to follow-up with his primary provider this coming week. I discussed this with the patient and his and they are in agreement with this plan. Departure - Departure Time of Disposition: 17:45 Disposition: Home, Self-Care 01 Condition: Good (Stable) Clinical Impression: Chest pain Qualifiers: Chest pain type: unspecified Qualified Code(s): R07.9 - Chest pain, unspecified Instructions: Nonspecific Chest Pain, [id number] Referrals: Segun Zaldivar MD [Primary Care Provider] - Additional Instructions: Your EKG was normal. Your heart enzyme test and your other blood tests were normal. Your blood screening test was negative. You have not had a heart attack and you do not appear to have any blood clots in your lungs. I am unsure why you are having the chest pain but it does not appear to be anything serious at this point. It appears that your pain is in the muscles and cartilage of your chest wall. You may take ibuprofen and/or Tylenol as needed for pain. Avoid any strenuous activity. Follow-up with Dr. Zaldivar this coming week. Back to the emergency department for worse breathing, unrelenting vomiting, abdominal pain other concerning sign or symptom. - My Orders Last 24 Hours: My Active Orders 01/30/19 16:05 Sodium Chloride 0.9% [Saline Flush] 10 ml FLUSH ASDIRECTED PRN Peripheral IV Insertion Adult [OM.PC] Routine EKG 12 Lead [EK] Routine 01/30/19 16:06 EKG Documentation Completion [RC] ASDIRECTED 01/30/19 16:09 Chest 1V Frontal [CR] Stat - Assessment/Plan Last 24 Hours: My Active Orders 01/30/19 16:05 Sodium Chloride 0.9% [Saline Flush] 10 ml FLUSH ASDIRECTED PRN Peripheral IV Insertion Adult [OM.PC] Routine EKG 12 Lead [EK] Routine 01/30/19 16:06 EKG Documentation Completion [RC] ASDIRECTED 01/30/19 16:09 Chest 1V Frontal [CR] Stat
[2019-01-30] MEDS ORDERED: Sodium Chloride 0.9% 10 ML Syringe FLUSH PRN (16:05)
[2019-01-30] MEDS ORDERED: Aspirin 81 MG Tab.Chew PO ONE (16:07)
--- NOTE | 2019-02-01 11:06 | CR ---
INDICATION: Chest pain. CHEST: Portable AP upright view of the chest 01/30/19 was compared with and 01/20/19. No definite interval change or acute process is identified. The heart did not appear enlarged. Overlying EKG leads are noted. An active infiltrate or effusion was not identified. Evidence of exogenous obesity is noted. IMPRESSION: No acute process. MTDD
== END 2019-01-30 18:05 | disposition home or self-care (01) ==
LOC: FB.ED 15:11
DX: R07.9 Chest pain, unspecified (principal); I10 Essential (primary) hypertension; E11.9 Type 2 diabetes mellitus without complications; J44.9 Chronic obstructive pulmonary disease, unspecified; Z87.891 Personal history of nicotine dependence; Z79.01 Long term (current) use of anticoagulants; Z79.899 Other long term (current) drug therapy; Z79.84 Long term (current) use of oral hypoglycemic drugs; Z79.51 Long term (current) use of inhaled steroids
CPT/HCPCS: 36415; 71045; 80053; 83735; 84484; 85025; 85379; 85610; 85730; 93005; 99285; A9270

== ENCOUNTER 2020-08-23 02:33 | Emergency (ER) | payer MEDICAID ==
[2020-08-23] MEDS ORDERED: methylPREDNISolone Sodium Succinate 125 MG/2 ML SDV IM STA (02:53)
--- NOTE | 2020-08-23 03:20 | EDM.PDOC ---
ED HPI GENERAL MEDICAL PROBLEM - General Chief Complaint: Respiratory Problem Stated Complaint: chest pain Time Seen by Provider: 08/23/20 02:35 Source of Information: Reports: Patient History Limitations: Reports: No Limitations - History of Present Illness INITIAL COMMENTS - FREE TEXT/NARRATIVE: Patient presented to the ED because of chest pain and dyspnea which started at 2135. The pain is pleuritic type,5/10. He also have been coughing more than usual productive of greenish phlegm. There is no associated fever, chills. - Related Data Allergies Allergy/AdvReac Type Severity Reaction Status Date / Time No Known Allergies Allergy Verified 08/23/20 02:56 Home Meds: Home Meds Albuterol [Proventil HFA] 2 puff INH Q4H PRN 04/20/18 [History] Albuterol/Ipratropium [DuoNeb 3.0-0.5 MG/3 ML] 3 ml .XX QID PRN 04/20/18 [History] amLODIPine Besylate [Norvasc] 2.5 mg PO DAILY 04/20/18 [History] lisinopriL [Prinivil] 5 mg PO DAILY 04/20/18 [History] metFORMIN [Glucophage] 500 mg PO BIDMEALS 04/20/18 [History] Budesonide/Formoterol Fumarate [Symbicort 80-4.5 MCG] 2 puff INH BID 11/19/18 [History] Celecoxib [CeleBREX] 200 mg PO DAILY 11/19/18 [History] Pantoprazole [ProTONIX] 40 mg PO DAILY 01/20/19 [History] Isosorbide Mononitrate [Imdur] 30 mg PO DAILY #30 tab.er 01/21/19 [Rx] Azithromycin [Zithromax] 250 mg PO DAILY #6 tablet 08/23/20 [Rx] predniSONE [Prednisone] 40 mg PO DAILY #10 tablet 08/23/20 [Rx] Past Medical History HEENT History: Reports: None Cardiovascular History: Reports: High Cholesterol, Hypertension Respiratory History: Reports: COPD Gastrointestinal History: Reports: Other (See Below) (Alcohol related liver disease) Other Gastrointestinal History: HERNIA Genitourinary History: Reports: Renal Calculus 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 Musculoskeletal History: Reports: Back Pain, Chronic Neurological History: Reports: None Psychiatric History: Reports: Addiction (Alcohol abuse in the past but has been sober for the past year.), Anxiety, Depression Endocrine/Metabolic History: Reports: Diabetes, Type II Hematologic History: Reports: None Immunologic History: Reports: None Oncologic (Cancer) History: Reports: None Dermatologic History: Reports: None - Past Surgical History GI Surgical History: Reports: Hernia, Abdominal (Umbilical hernia repair) Musculoskeletal Surgical History: Reports: Shoulder Surgery (Left shoulder surgery) Social & Family History - Family History Family Medical History: No Pertinent Family History - Caffeine Use Caffeine Use: Reports: Soda, Tea - Living Situation & Occupation Occupation: Retired ED ROS GENERAL - Review of Systems Review Of Systems: See Below Constitutional: Reports: No Symptoms HEENT: Reports: No Symptoms Respiratory: Reports: Shortness of Breath Cardiovascular: Reports: Chest Pain Endocrine: Reports: No Symptoms GI/Abdominal: Reports: No Symptoms : Reports: No Symptoms Musculoskeletal: Reports: No Symptoms Skin: Reports: No Symptoms Neurological: Reports: No Symptoms Psychiatric: Reports: No Symptoms ED EXAM, GENERAL - Physical Exam Exam: See Below Exam Limited By: No Limitations General Appearance: Alert, No Apparent Distress Ears: Normal External Exam, Normal Canal Nose: Normal Inspection, Normal Mucosa Throat/Mouth: Normal Inspection Head: Atraumatic, Normocephalic Neck: Normal Inspection, Supple, Non-Tender Respiratory/Chest: No Respiratory Distress, Chest Non-Tender, Wheezing Cardiovascular: Normal Peripheral Pulses, Regular Rate, Rhythm, No Edema, No Gallop GI/Abdominal: Normal Bowel Sounds, Soft, Non-Tender, No Organomegaly Back Exam: Normal Inspection, Full Range of Motion Extremities: Normal Inspection, Normal Range of Motion, Non-Tender Neurological: Alert, Oriented, CN II-XII Intact, Normal Cognition, Normal Gait Course - Vital Signs Text/Narrative:: Labs/EKG/CXR was discussed with patient Solumedrol 125 mg IM x1 Last Recorded V/S: Last Vital Signs Temp 36.8 C 08/23/20 02:35 Pulse 61 08/23/20 02:35 Resp 17 08/23/20 02:35 BP 147/92 H 08/23/20 02:35 Pulse Ox 98 08/23/20 02:35 - Orders/Labs/Meds Orders: Active Orders 24 hr Category Date Time Status EKG 12 Lead [EK] Routine Ther 08/23/20 02:47 Ordered Labs: Laboratory Tests 08/23/20 08/23/20 08/23/20 Range/Units 03:00 03:00 03:00 WBC 7.7 (3.2-10.1) x10-3/uL RBC 4.64 (3.90-5.90) x10(6)uL Hgb 13.5 (12.9-17.7) g/dL Hct 42.2 (38.3-50.1) % MCV 90.9 (80.8-98.7) fL MCH 29.1 (27.0-33.3) pg MCHC 32.0 (28.7-35.3) g/dL RDW 13.4 (12.4-15.0) % Plt Count 278 (117-477) x10(3)uL MPV 8.6 (6.7-11.0) fL Neut % (Auto) 50.3 (40.3-71.8) % Lymph % (Auto) 34.6 (15.8-45.3) % [place] % (Auto) 10.3 (5.5-15.2) % Eos % (Auto) 4.1 (0.1-6.8) % Baso % (Auto) 0.7 (0.3-3.8) % Neut # (Auto) 3.9 (1.7-6.9) x10-3/uL Lymph # (Auto) 2.7 (0.5-4.5) x10-3/uL [place] # (Auto) 0.8 (0.0-1.2) x10-3/uL Eos # (Auto) 0.3 (0.0-0.6) x10-3/uL Baso # (Auto) 0.1 (0.0-0.3) x10-3/uL Sodium 142 (135-145) mmol/L Potassium 3.4 L D (3.5-5.3) mmol/L Chloride 104 (100-110) mmol/L Carbon Dioxide 27 (21-32) mmol/L BUN 19 H (7-18) mg/dL Creatinine 1.6 H (0.70-1.30) mg/dL Est Cr Clr Drug Dosing TNP Estimated GFR (MDRD) 44 L (>60) BUN/Creatinine Ratio 11.9 (9-20) Glucose 123 H (80-116) mg/dL Calcium 8.8 (8.6-10.2) mg/dL Total Bilirubin 0.3 (0.1-1.3) mg/dL AST 23 (5-25) IU/L ALT 35 (12-36) U/L Alkaline Phosphatase 91 (56-112) IU/L Troponin I 9.2 (4.0-60.3) pg/mL Total Protein 6.9 (6.0-8.0) g/dL Albumin 3.4 L (3.5-5.2) g/dL Globulin 3.5 g/dL Albumin/Globulin Ratio 1.0 Meds: Medications Discontinued Medications Generic Name Dose Route Start Last Admin Trade Name Lisa PRN Reason Stop Dose Admin Methylprednisolone Sodium Succinate 125 mg 08/23/20 02:53 08/23/20 03:11 Solu-Medrol IM 08/23/20 02:54 125 mg NOW STA Administration Departure - Departure Time of Disposition: 03:45 Disposition: Home, Self-Care 01 Condition: Good Clinical Impression: COPD exacerbation - Discharge Information Prescriptions: predniSONE [Prednisone] 40 mg PO DAILY #10 tablet Azithromycin [Zithromax] 250 mg PO DAILY #6 tablet Instructions: Chronic Obstructive Pulmonary Disease Exacerbation, [id number] Referrals: PCP,None [Primary Care Provider] - Forms: ED Department Discharge Additional Instructions: Please read discharge instruction Increase oral fluids Duoneb every 6 hours for 3 days then as needed Z-jareth as directed Prednisone 20 mg, 2 tablets gertrudis for 5 days starting tomorrow Follow up as needed Sepsis Event Note (ED) - Evaluation Sepsis Screening Result: No Definite Risk - Focused Exam Vital Signs: Vital Signs Temp Pulse Resp BP Pulse Ox 08/23/20 02:35 36.8 C 61 17 147/92 H 98 - My Orders Last 24 Hours: My Active Orders 08/23/20 02:47 EKG 12 Lead [EK] Routine - Assessment/Plan Last 24 Hours: My Active Orders 08/23/20 02:47 EKG 12 Lead [EK] Routine
--- NOTE | 2020-08-23 10:05 | CR ---
INDICATION: Chest pain. CHEST ONE VIEW: AP portable upright view of the chest 08/23/20 was compared with 01/30/19 and 01/20/19. The heart appeared normal in size. Poor inspiration emphasizes basilar markings without a definite active infiltrate or effusion. Evidence of exogenous obesity is again noted. Overlying EKG leads are noted. IMPRESSION: No definite acute process. When clinically possible, full inspiration PA and lateral views of the chest may be helpful. MTDD
== END 2020-08-23 04:12 | disposition home or self-care (01) ==
LOC: FB.ED 02:33
DX: J44.1 Chronic obstructive pulmonary disease with (acute) exacerbation (principal); E78.00 Pure hypercholesterolemia, unspecified; I10 Essential (primary) hypertension; E11.9 Type 2 diabetes mellitus without complications; Z79.84 Long term (current) use of oral hypoglycemic drugs; Z79.899 Other long term (current) drug therapy
CPT/HCPCS: 36415; 71045; 80053; 84484; 85025; 93005; 96372; 99284; 99285-25; J2930

== ENCOUNTER 2020-11-19 10:05 | Emergency (ER) | payer MEDICAID ==
[2020-11-19] MEDS: Sodium Chloride 0.9% 10 ML Syringe FLUSH PRN (10:40)
[2020-11-19] MEDS: methylPREDNISolone Sodium Succinate 125 MG/2 ML SDV IVPUSH ONE (10:40)
[2020-11-19 10:53] LABS: BASE EXCESS VENOUS,POC 1 mmol/L (-2-3); HCO3 VENOUS,POC 27 mmol/L (21-29); PCO2 VENOUS,POC 52 mmHg (41-51); PH VENOUS,POC 7.33 pH Units (7.32-7.43)
--- NOTE | 2020-11-19 10:58 | EDM.PDOC ---
ED HPI GENERAL MEDICAL PROBLEM - General Chief Complaint: Respiratory Problem Stated Complaint: SOB Time Seen by Provider: 11/19/20 10:40 Source of Information: Reports: Patient, EMS History Limitations: Reports: No Limitations - History of Present Illness INITIAL COMMENTS - FREE TEXT/NARRATIVE: Presents with SOB this morning @30 min [employer]. Symptoms were sudden onset while at rest. Has a history of COPD, not 02 dependent. He does not currently smoke cigarettes. Neb tx seemed to make it worse. He does feel better upon presentation to the ED though. Patient has received a total of three Nebs today. Denies chest pain or fevers. He has had a slight cough. Onset: Sudden Duration: Hour(s): (1) Severity: Moderate - Related Data Allergies Allergy/AdvReac Type Severity Reaction Status Date / Time No Known Allergies Allergy Verified 11/19/20 10:55 Home Meds: Home Meds Albuterol [Proventil HFA] 2 puff INH Q4H PRN 04/20/18 [History] Albuterol/Ipratropium [DuoNeb 3.0-0.5 MG/3 ML] 3 ml .XX QID PRN 04/20/18 [History] amLODIPine Besylate [Norvasc] 2.5 mg PO DAILY 04/20/18 [History] lisinopriL [Prinivil] 5 mg PO DAILY 04/20/18 [History] metFORMIN [Glucophage] 500 mg PO BIDMEALS 04/20/18 [History] Celecoxib [CeleBREX] 200 mg PO DAILY 11/19/18 [History] Pantoprazole [ProTONIX] 40 mg PO DAILY 01/20/19 [History] Isosorbide Mononitrate [Imdur] 30 mg PO DAILY #30 tab.er 01/21/19 [Rx] Cetirizine [ZyrTEC] 10 mg PO DAILY 11/19/20 [History] Potassium Citrate [Potassium Citrate ER] 30 meq PO TID 11/19/20 [History] atorvaSTATin [Lipitor] 40 mg PO BEDTIME 11/19/20 [History] methylPREDNISolone [Medrol Dose Pack] 4 mg PO DAILY #1 dospk 11/19/20 [Rx] Past Medical History HEENT History: Reports: None Cardiovascular History: Reports: High Cholesterol, Hypertension Respiratory History: Reports: COPD Gastrointestinal History: Reports: Other (See Below) Other Gastrointestinal History: HERNIA Genitourinary History: Reports: Renal Calculus 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: None Musculoskeletal History: Reports: Back Pain, Chronic Neurological History: Reports: None Psychiatric History: Reports: Addiction, Anxiety, Depression Endocrine/Metabolic History: Reports: Diabetes, Type II Hematologic History: Reports: None Immunologic History: Reports: None Oncologic (Cancer) History: Reports: None Dermatologic History: Reports: None - Past Surgical History GI Surgical History: Reports: Hernia, Abdominal (Umbilical hernia repair) Musculoskeletal Surgical History: Reports: Shoulder Surgery (Left shoulder surgery) Social & Family History - Family History Family Medical History: No Pertinent Family History - Tobacco Use Tobacco Use Status *Q: Former Tobacco User Tobacco Use Within Last Twelve Months: No - Caffeine Use Caffeine Use: Reports: Soda - Living Situation & Occupation Occupation: Retired ED ROS GENERAL - Review of Systems Review Of Systems: Comprehensive ROS is negative, except as noted in HPI. ED EXAM, GENERAL - Physical Exam Exam: See Below Exam Limited By: No Limitations General Appearance: Alert, WD/WN, No Apparent Distress Nose: Normal Inspection Throat/Mouth: No Airway Compromise Head: Atraumatic, Normocephalic Neck: Normal Inspection Respiratory/Chest: No Respiratory Distress, Wheezing (mild expiratory right lung field). No: Decreased Breath Sounds Cardiovascular: Regular Rate, Rhythm, No Murmur GI/Abdominal: Soft, Non-Tender, No Distention Back Exam: Full Range of Motion Extremities: Normal Range of Motion, Non-Tender, No Pedal Edema Neurological: Alert, Normal Cognition Psychiatric: Normal Affect, Normal Mood Skin Exam: Warm, Dry, Intact #1 Interpretation EKG Date: 11/19/20 Time: 10:12 Rhythm: NSR Rate (Beats/Min): 68 [place]: Normal P-Wave: Present QRS: Normal ST-T: Normal QT: Normal Course - Vital Signs Last Recorded V/S: Last Vital Signs Temp 36.2 C 11/19/20 10:05 Pulse 77 11/19/20 10:05 Resp 15 11/19/20 10:05 BP 141/96 H 11/19/20 10:05 Pulse Ox 99 11/19/20 10:05 - Orders/Labs/Meds Orders: Active Orders 24 hr Category Date Time Status EKG Documentation Completion [RC] ASDIRECTED Care 11/19/20 10:06 Active CXR [Chest 1V Frontal] [CR] Stat Exams 11/19/20 10:07 Taken Sodium Chloride 0.9% [Saline Flush] Med 11/19/20 10:08 Active 10 ml FLUSH ASDIRECTED PRN Saline Lock Insert [OM.PC] Routine Oth 11/19/20 10:08 Ordered EKG 12 Lead [EK] Stat Ther 11/19/20 10:06 Ordered Medication Orders Sodium Chloride (Sodium Chloride 0.9% 10 Ml Syringe) 10 ml FLUSH ASDIRECTED PRN PRN Reason: Keep Vein Open Last Admin: 11/19/20 10:40 Dose: 10 ml Documented by: SYDNEY Labs: Laboratory Tests 11/19/20 11/19/20 11/19/20 Range/Units 10:10 10:25 10:25 WBC 6.6 (3.2-10.1) x10-3/uL RBC 4.77 (3.90-5.90) x10(6)uL Hgb 13.7 (12.9-17.7) g/dL Hct 43.3 (38.3-50.1) % MCV 90.8 (80.8-98.7) fL MCH 28.7 (27.0-33.3) pg MCHC 31.6 (28.7-35.3) g/dL RDW 13.5 (12.4-15.0) % Plt Count 289 (117-477) x10(3)uL MPV 8.6 (6.7-11.0) fL Neut % (Auto) 55.1 (40.3-71.8) % Lymph % (Auto) 32.0 (15.8-45.3) % [place] % (Auto) 8.4 (5.5-15.2) % Eos % (Auto) 3.7 (0.1-6.8) % Baso % (Auto) 0.8 (0.3-3.8) % Neut # (Auto) 3.6 (1.7-6.9) x10-3/uL Lymph # (Auto) 2.1 (0.5-4.5) x10-3/uL [place] # (Auto) 0.6 (0.0-1.2) x10-3/uL Eos # (Auto) 0.2 (0.0-0.6) x10-3/uL Baso # (Auto) 0.1 (0.0-0.3) x10-3/uL PT (9.0-11.1) sec INR (1.00-1.24) APTT (24.4-33.2) SECONDS D-Dimer, Quantitative (0.0-0.59) mg/LFEU POC VBG pH (7.32-7.43) pH Units POC VBG pCO2 (41-51) mmHg POC VBG HCO3 (21-29) mmol/L VBG Base Excess (-2-3) mmol/L O2 Delivery Device Sodium 145 (135-145) mmol/L Potassium 3.6 (3.5-5.3) mmol/L Chloride 109 D (100-110) mmol/L Carbon Dioxide 28 (21-32) mmol/L BUN 13 (7-18) mg/dL Creatinine 1.3 (0.70-1.30) mg/dL Est Cr Clr Drug Dosing TNP Estimated GFR (MDRD) 56 L (>60) BUN/Creatinine Ratio 10.0 (9-20) Glucose 122 H (80-116) mg/dL Calcium 8.2 L (8.6-10.2) mg/dL Total Bilirubin 0.3 (0.1-1.3) mg/dL AST 16 D (5-25) IU/L ALT 28 D (12-36) U/L Alkaline Phosphatase 98 (56-112) IU/L Troponin I (4.0-60.3) pg/mL Total Protein 6.8 (6.0-8.0) g/dL Albumin 3.1 L (3.2-4.6) g/dL Globulin 3.7 g/dL Albumin/Globulin Ratio 0.8 SARS-CoV-2 RNA (KHARI) Negative (NEGATIVE) 11/19/20 11/19/20 11/19/20 Range/Units 10:25 10:25 10:25 WBC (3.2-10.1) x10-3/uL RBC (3.90-5.90) x10(6)uL Hgb (12.9-17.7) g/dL Hct (38.3-50.1) % MCV (80.8-98.7) fL MCH (27.0-33.3) pg MCHC (28.7-35.3) g/dL RDW (12.4-15.0) % Plt Count (117-477) x10(3)uL MPV (6.7-11.0) fL Neut % (Auto) (40.3-71.8) % Lymph % (Auto) (15.8-45.3) % [place] % (Auto) (5.5-15.2) % Eos % (Auto) (0.1-6.8) % Baso % (Auto) (0.3-3.8) % Neut # (Auto) (1.7-6.9) x10-3/uL Lymph # (Auto) (0.5-4.5) x10-3/uL [place] # (Auto) (0.0-1.2) x10-3/uL Eos # (Auto) (0.0-0.6) x10-3/uL Baso # (Auto) (0.0-0.3) x10-3/uL PT 9.9 (9.0-11.1) sec INR 0.91 L (1.00-1.24) APTT 24.7 (24.4-33.2) SECONDS D-Dimer, Quantitative 0.32 (0.0-0.59) mg/LFEU POC VBG pH (7.32-7.43) pH Units POC VBG pCO2 (41-51) mmHg POC VBG HCO3 (21-29) mmol/L VBG Base Excess (-2-3) mmol/L O2 Delivery Device Sodium (135-145) mmol/L Potassium (3.5-5.3) mmol/L Chloride (100-110) mmol/L Carbon Dioxide (21-32) mmol/L BUN (7-18) mg/dL Creatinine (0.70-1.30) mg/dL Est Cr Clr Drug Dosing Estimated GFR (MDRD) (>60) BUN/Creatinine Ratio (9-20) Glucose (80-116) mg/dL Calcium (8.6-10.2) mg/dL Total Bilirubin (0.1-1.3) mg/dL AST (5-25) IU/L ALT (12-36) U/L Alkaline Phosphatase (56-112) IU/L Troponin I 13.5 (4.0-60.3) pg/mL Total Protein (6.0-8.0) g/dL Albumin (3.2-4.6) g/dL Globulin g/dL Albumin/Globulin Ratio SARS-CoV-2 RNA (KHARI) (NEGATIVE) 11/19/20 Range/Units 10:25 WBC (3.2-10.1) x10-3/uL RBC (3.90-5.90) x10(6)uL Hgb (12.9-17.7) g/dL Hct (38.3-50.1) % MCV (80.8-98.7) fL MCH (27.0-33.3) pg MCHC (28.7-35.3) g/dL RDW (12.4-15.0) % Plt Count (117-477) x10(3)uL MPV (6.7-11.0) fL Neut % (Auto) (40.3-71.8) % Lymph % (Auto) (15.8-45.3) % [place] % (Auto) (5.5-15.2) % Eos % (Auto) (0.1-6.8) % Baso % (Auto) (0.3-3.8) % Neut # (Auto) (1.7-6.9) x10-3/uL Lymph # (Auto) (0.5-4.5) x10-3/uL [place] # (Auto) (0.0-1.2) x10-3/uL Eos # (Auto) (0.0-0.6) x10-3/uL Baso # (Auto) (0.0-0.3) x10-3/uL PT (9.0-11.1) sec INR (1.00-1.24) APTT (24.4-33.2) SECONDS D-Dimer, Quantitative (0.0-0.59) mg/LFEU POC VBG pH 7.33 (7.32-7.43) pH Units POC VBG pCO2 52 H (41-51) mmHg POC VBG HCO3 27 (21-29) mmol/L VBG Base Excess 1 (-2-3) mmol/L O2 Delivery Device Room air Sodium (135-145) mmol/L Potassium (3.5-5.3) mmol/L Chloride (100-110) mmol/L Carbon Dioxide (21-32) mmol/L BUN (7-18) mg/dL Creatinine (0.70-1.30) mg/dL Est Cr Clr Drug Dosing Estimated GFR (MDRD) (>60) BUN/Creatinine Ratio (9-20) Glucose (80-116) mg/dL Calcium (8.6-10.2) mg/dL Total Bilirubin (0.1-1.3) mg/dL AST (5-25) IU/L ALT (12-36) U/L Alkaline Phosphatase (56-112) IU/L Troponin I (4.0-60.3) pg/mL Total Protein (6.0-8.0) g/dL Albumin (3.2-4.6) g/dL Globulin g/dL Albumin/Globulin Ratio SARS-CoV-2 RNA (KHARI) (NEGATIVE) Meds: Medications Generic Name Dose Route Start Last Admin Trade Name Freq PRN Reason Stop Dose Admin Sodium Chloride 10 ml 11/19/20 10:08 11/19/20 10:40 Sodium Chloride 0.9% 10 Ml Syringe FLUSH 10 ml ASDIRECTED PRN Administration Keep Vein Open Discontinued Medications Generic Name Dose Route Start Last Admin Trade Name Freq PRN Reason Stop Dose Admin Methylprednisolone Sodium Succinate 125 mg 11/19/20 10:14 11/19/20 10:40 Methylprednisolone Sodium Succinate 125 Mg/2 Ml Sdv IVPUSH 11/19/20 10:15 125 mg ONETIME ONE Administration - Radiology Interpretation Free Text/Narrative:: CXR: No acute process. (ED provider interpretation) - Re-Assessments/Exams Free Text/Narrative Re-Assessment/Exam: 11/19/20 11:18 Patient resting comfortably, in no acute distress. Departure - Departure Time of Disposition: 11:19 Disposition: Home, Self-Care 01 Condition: Good Clinical Impression: COPD exacerbation - Discharge Information *PRESCRIPTION DRUG MONITORING PROGRAM REVIEWED*: No *COPY OF PRESCRIPTION DRUG MONITORING REPORT IN PATIENT PAVITHRA: Not Applicable Prescriptions: methylPREDNISolone [Medrol Dose Pack] 4 mg PO DAILY #1 dospk Instructions: Chronic Obstructive Pulmonary Disease, [id number] Referrals: Segun Zaldivar MD [Primary Care Provider] - 2 Days Forms: ED Department Discharge Additional Instructions: Fill the Medrol dosepak today at [facility] in [place] and take as directed. Continue Nebulizer treatments. Follow up with your primary physician in 2-3 days. Return to the ER if symptoms worsen. Sepsis Event Note (ED) - Evaluation Sepsis Screening Result: No Definite Risk - Focused Exam Vital Signs: Vital Signs Temp Pulse Resp BP Pulse Ox 11/19/20 10:05 36.2 C 77 15 141/96 H 99 - My Orders Last 24 Hours: My Active Orders 11/19/20 10:06 EKG Documentation Completion [RC] ASDIRECTED EKG 12 Lead [EK] Stat 11/19/20 10:07 CXR [Chest 1V Frontal] [CR] Stat 11/19/20 10:08 Sodium Chloride 0.9% [Saline Flush] 10 ml FLUSH ASDIRECTED PRN Saline Lock Insert [OM.PC] Routine - Assessment/Plan Last 24 Hours: My Active Orders 11/19/20 10:06 EKG Documentation Completion [RC] ASDIRECTED EKG 12 Lead [EK] Stat 11/19/20 10:07 CXR [Chest 1V Frontal] [CR] Stat 11/19/20 10:08 Sodium Chloride 0.9% [Saline Flush] 10 ml FLUSH ASDIRECTED PRN Saline Lock Insert [OM.PC] Routine
--- NOTE | 2020-11-21 11:07 | CR ---
INDICATION: Short of breath. CHEST ONE VIEW: An AP upright portable view of the chest 11/19/20 was compared with 08/23/20 and 01/30/19. Relatively poor inspiration is noted emphasizing basilar markings similar to the previous examination and making it difficult to exclude patchy bronchopneumonia at the lung bases, especially on the right. However, no consolidating pneumonia or effusion was seen. Heart size also was difficult to evaluate due to the AP positioning and poor inspiration and may be at the upper limits of normal in size or even minimally enlarged. Overlying EKG leads are noted. IMPRESSION: No definite acute process. When clinically possible, full inspiration PA and lateral views of the chest are recommended for further evaluation. MTDD
== END 2020-11-19 11:35 | disposition home or self-care (01) ==
LOC: FB.ED 10:05
DX: J44.1 Chronic obstructive pulmonary disease with (acute) exacerbation (principal); E78.00 Pure hypercholesterolemia, unspecified; I10 Essential (primary) hypertension; E11.9 Type 2 diabetes mellitus without complications; J44.9 Chronic obstructive pulmonary disease, unspecified; Z79.84 Long term (current) use of oral hypoglycemic drugs; Z87.891 Personal history of nicotine dependence; Z20.822 Contact with and (suspected) exposure to COVID-19
CPT/HCPCS: 36415; 71045; 80053; 84484; 85025; 85379; 85610; 85730; 87635; 93005; 96374; 99285; J2930; U0002

== ENCOUNTER 2021-02-12 11:37 | Emergency (ER) | payer MEDICAID ==
[2021-02-12] MEDS ORDERED: methylPREDNISolone Sodium Succinate 125 MG/2 ML SDV IM STA (12:12)
[2021-02-12] MEDS ORDERED: Albuterol/Ipratropium 3.0-0.5 MG/3 ML Neb Soln NEB STA (12:12)
--- NOTE | 2021-02-12 12:46 | EDM.PDOC ---
ED HPI GENERAL MEDICAL PROBLEM - General Stated Complaint: dyspnea Time Seen by Provider: 02/12/21 12:15 Source of Information: Reports: Patient History Limitations: Reports: No Limitations - History of Present Illness INITIAL COMMENTS - FREE TEXT/NARRATIVE: Patient presented to the ED because of increasing dyspnea which started 30 minutes before arrival in the ED. He has a history of COPD and Asthma , still smokes 1/2 PPD. There is no fever,chills but looks anxious. - Related Data Allergies Allergy/AdvReac Type Severity Reaction Status Date / Time Iodinated Contrast Media Allergy Cannot Verified 02/12/21 21:07 Remember Home Meds: Home Meds Albuterol [Proventil HFA] 2 puff INH Q4H PRN 04/20/18 [History] Albuterol/Ipratropium [DuoNeb 3.0-0.5 MG/3 ML] 3 ml .XX QID PRN 04/20/18 [History] amLODIPine Besylate [Norvasc] 2.5 mg PO DAILY 04/20/18 [History] lisinopriL [Prinivil] 5 mg PO DAILY 04/20/18 [History] metFORMIN [Glucophage] 500 mg PO BIDMEALS 04/20/18 [History] Celecoxib [CeleBREX] 200 mg PO DAILY 11/19/18 [History] Pantoprazole [ProTONIX] 40 mg PO DAILY 01/20/19 [History] Isosorbide Mononitrate [Imdur] 30 mg PO DAILY #30 tab.er 01/21/19 [Rx] Cetirizine [ZyrTEC] 10 mg PO DAILY 11/19/20 [History] Potassium Citrate [Potassium Citrate ER] 30 meq PO TID 11/19/20 [History] atorvaSTATin [Lipitor] 40 mg PO BEDTIME 11/19/20 [History] methylPREDNISolone [Medrol Dose Pack] 4 mg PO DAILY #1 dospk 11/19/20 [Rx] Azithromycin [Zithromax] 500 mg PO DAILY #5 tab 02/12/21 [Rx] predniSONE [Prednisone] 40 mg PO DAILY #10 tablet 02/12/21 [Rx] Past Medical History HEENT History: Reports: None Cardiovascular History: Reports: High Cholesterol, Hypertension Respiratory History: Reports: COPD Gastrointestinal History: Reports: Other (See Below) Other Gastrointestinal History: HERNIA Genitourinary History: Reports: Renal Calculus [employer]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 Musculoskeletal History: Reports: Back Pain, Chronic Neurological History: Reports: None Psychiatric History: Reports: Addiction, Anxiety, Depression Endocrine/Metabolic History: Reports: Diabetes, Type II Hematologic History: Reports: None Immunologic History: Reports: None Oncologic (Cancer) History: Reports: None Dermatologic History: Reports: None - Past Surgical History GI Surgical History: Reports: Hernia, Abdominal (Umbilical hernia repair) Musculoskeletal Surgical History: Reports: Shoulder Surgery (Left shoulder surgery) Social & Family History - Family History Family Medical History: No Pertinent Family History - Caffeine Use Caffeine Use: Reports: None - Living Situation & Occupation Occupation: Retired ED ROS GENERAL - Review of Systems Review Of Systems: See Below Constitutional: Reports: No Symptoms HEENT: Reports: No Symptoms Respiratory: Reports: Shortness of Breath, Wheezing, Cough Cardiovascular: Reports: No Symptoms Endocrine: Reports: No Symptoms GI/Abdominal: Reports: No Symptoms : Reports: No Symptoms Musculoskeletal: Reports: No Symptoms Skin: Reports: No Symptoms Neurological: Reports: No Symptoms Psychiatric: Reports: No Symptoms Hematologic/Lymphatic: Reports: No Symptoms ED EXAM, GENERAL - Physical Exam Exam: See Below Exam Limited By: No Limitations General Appearance: Alert, No Apparent Distress Eye Exam: Bilateral Eye: PERRL Ears: Normal External Exam, Normal Canal Nose: Normal Inspection, Normal Mucosa, No Blood Throat/Mouth: Normal Inspection, Normal Lips, Normal Teeth Head: Atraumatic, Normocephalic Neck: Normal Inspection, Supple, Non-Tender Respiratory/Chest: No Respiratory Distress, Decreased Breath Sounds, Rhonchi, Wheezing Cardiovascular: Normal Peripheral Pulses, Regular Rate, Rhythm, No Edema, No G allop GI/Abdominal: Normal Bowel Sounds, Soft, Non-Tender, No Organomegaly, No Distention, No Abnormal Bruit, No Mass Back Exam: Normal Inspection, Full Range of Motion Extremities: Normal Inspection, Normal Range of Motion, Non-Tender, No Pedal Edema, Normal Capillary Refill Neurological: Alert, Oriented, CN II-XII Intact, Normal Cognition, Normal Reflexes Course - Vital Signs Text/Narrative:: CXR-no acute dse Solumedrol 125 mg IM x1 Duoneb x1 Last Recorded V/S: Last Vital Signs Temp 36.6 C 02/12/21 12:13 Pulse Resp 28 H 02/12/21 12:13 BP Pulse Ox 95 02/12/21 12:13 - Orders/Labs/Meds Meds: Medications Discontinued Medications Generic Name Dose Route Start Last Admin Trade Name Lisa CRUZ Reason Stop Dose Admin Albuterol/Ipratropium 3 ml 02/12/21 12:12 02/12/21 12:30 Albuterol/Ipratropium 3.0-0.5 Mg/3 Ml Neb Soln NEB 02/12/21 12:13 3 ml NOW STA Administration Methylprednisolone Sodium Succinate 125 mg 02/12/21 12:12 02/12/21 12:47 Methylprednisolone Sodium Succinate 125 Mg/2 Ml Sdv IM 02/12/21 12:13 125 mg NOW STA Administration Departure - Departure Time of Disposition: 12:55 Disposition: Home, Self-Care 01 Clinical Impression: COPD exacerbation - Discharge Information Prescriptions: predniSONE [Prednisone] 40 mg PO DAILY #10 tablet Azithromycin [Zithromax] 500 mg PO DAILY #5 tab Instructions: Chronic Obstructive Pulmonary Disease Exacerbation, [id number] Referrals: PCP,Unknown [Primary Care Provider] - Forms: ED Department Discharge Additional Instructions: Please read discharge instructions on COPD exacerbation/flare up Drink at least 2 liters of water daily Duoneb every 6 hours for 3 days then as needed Zithromax 500 mg daily for 5 days starting today Prednisone 40 mg daily for 5 days starting today Follow up as needed
--- NOTE | 2021-02-12 15:32 | CR ---
INDICATION: Dyspnea, COPD. CHEST ONE VIEW: An AP upright portable view of the chest was obtained 02/12/21 and compared with 11/19/20 and 08/23/20. The heart appears prominent but this is emphasized by the AP positioning and the relatively poor inspiration. Overlying EKG leads are noted. Calcifications are noted in the arch of the aorta with mild tortuosity of the aorta. Heavy markings are again noted with the markings similar to the previous examination overall allowing for poor inspiration. A definite active infiltrate or effusion was not identified. IMPRESSION: 1. Fairly stable appearance of the chest with no definite acute process allowing for relatively poor inspiration. 2. When clinically possible, full inspiration PA and lateral views of the chest, may be helpful for further evaluation. MTDD
--- NOTE | 2021-02-13 11:54 | PCM.EKG ---
#1 Interpretation EKG Date: 02/12/21 Time: 11:40 Rhythm: NSR Rate (Beats/Min): 95 [place]: Normal P-Wave: Present QRS: Normal ST-T: Normal QT: Normal Comparison: No Change EKG Interpretation Comments: NSR Non specific T wave abn
== END 2021-02-12 13:20 | disposition home or self-care (01) ==
LOC: FB.ED 11:37
DX: J44.1 Chronic obstructive pulmonary disease with (acute) exacerbation (principal); E78.00 Pure hypercholesterolemia, unspecified; I10 Essential (primary) hypertension; E11.9 Type 2 diabetes mellitus without complications; Z91.041 Radiographic dye allergy status; Z79.84 Long term (current) use of oral hypoglycemic drugs; Z79.899 Other long term (current) drug therapy
CPT/HCPCS: 71045; 94640; 96372; 99285; J2930; J7620-GY

== ENCOUNTER 2022-01-05 18:10 | Emergency (ER) | payer MEDICAID ==
[2022-01-05 20:50] LABS: ESTIMATED GFR 69 mL/min (>60)
== END 2022-01-05 20:02 | disposition home or self-care (01) ==
LOC: FB.ED 19:10
DX: R07.9 Chest pain, unspecified (principal); I10 Essential (primary) hypertension; J44.9 Chronic obstructive pulmonary disease, unspecified; E78.00 Pure hypercholesterolemia, unspecified; E11.9 Type 2 diabetes mellitus without complications; E66.9 Obesity, unspecified; Z68.30 Body mass index [BMI] 30.0-30.9, adult; Z91.041 Radiographic dye allergy status; Z79.899 Other long term (current) drug therapy; Z79.84 Long term (current) use of oral hypoglycemic drugs
CPT/HCPCS: 36415; 80053; 83880; 84484; 85025; 85379; 85610; 85730; 93005; 99285

== ENCOUNTER 2022-04-01 12:39 | Emergency (ER) | payer MEDICAID | END 2022-04-01 14:22 | disposition home or self-care (01) | LOC: FB.ED 12:39 | DX: G70.01 Myasthenia gravis with (acute) exacerbation (principal); J44.9 Chronic obstructive pulmonary disease, unspecified; E78.00 Pure hypercholesterolemia, unspecified; I10 Essential (primary) hypertension; E11.9 Type 2 diabetes mellitus without complications; E66.9 Obesity, unspecified; Z68.28 Body mass index [BMI] 28.0-28.9, adult; Z91.041 Radiographic dye allergy status; Z79.899 Other long term (current) drug therapy; Z79.84 Long term (current) use of oral hypoglycemic drugs | CPT/HCPCS: 99284; A9270 ==

== ENCOUNTER 2022-04-09 15:23 | Emergency (ER) | payer MEDICAID | END 2022-04-09 17:30 | disposition home or self-care (01) | LOC: FB.ED 15:23 | DX: N20.0 Calculus of kidney (principal); J44.9 Chronic obstructive pulmonary disease, unspecified; E78.00 Pure hypercholesterolemia, unspecified; I10 Essential (primary) hypertension; E11.9 Type 2 diabetes mellitus without complications; E66.9 Obesity, unspecified; Z91.041 Radiographic dye allergy status; Z79.899 Other long term (current) drug therapy; Z79.84 Long term (current) use of oral hypoglycemic drugs; Z87.891 Personal history of nicotine dependence | CPT/HCPCS: 74176; 81001; 99284 ==

== ENCOUNTER 2025-01-24 12:40 | Emergency (ER) | payer MEDICAID ==
[2025-01-24 13:17] LABS: BASE EXCESS VENOUS,POC 3 mmol/L (-2 - 3+); PCO2 VENOUS,POC 50 mmHg (41-51); PH VENOUS,POC 7.37 pH Units (7.32-7.43)
[2025-01-24 13:21] LABS: BASOPHILS ABSOLUTE AUTO 0.1 x10-3/uL (0.0-0.3); BASOPHILS PERCENT AUTO 0.9 % (0.3-3.8); EOSINOPHILS ABSOLUTE AUTO 0.1 x10-3/uL (0.0-0.6); EOSINOPHILS PERCENT AUTO 2.2 % (0.1-6.8); LYMPHOCYTES ABSOLUTE AUTO 1.8 x10-3/uL (0.5-4.5); LYMPHOCYTES PERCENT AUTO 30.5 % (15.8-45.3); MEAN PLATELET VOLUME 8.5 fL (6.7-11.0); MONOCYTES ABSOLUTE AUTO 0.5 x10-3/uL (0.0-1.2); MONOCYTES PERCENT AUTO 9.1 % (5.5-15.2); NEUTROPHILS ABSOLUTE AUTO 3.4 x10-3/uL (1.7-6.9); NEUTROPHILS PERCENT AUTO 57.3 % (40.3-71.8); PLATELET COUNT,PLT 205 x10(3)uL (117-477); RED BLOOD CELL COUNT 4.47 x10(6)uL (3.90-5.90); RED CELL DISTRIBUTION WIDTH 13.4 % (12.4-15.0); WHITE BLOOD CELL COUNT,WBC 6.0 x10-3/uL (3.2-10.1)
[2025-01-24 13:24] LABS: BLOOD UREA NITROGEN,BUN 16 mg/dL (7-18); CARBON DIOXIDE,CO2 30 mmol/L (21-32); CHLORIDE,CL 109 mmol/L (100-110); CREATININE 1.2 mg/dL (0.70-1.30); EST CRCL DRUG DOSING (CG) 66.24 mL/min; ESTIMATED GFR 68 mL/min (>60); GLUCOSE RANDOM 101 mg/dL (80-116); POTASSIUM,K 4.4 mmol/L (3.5-5.3); SODIUM,NA 146 mmol/L (135-145)
[2025-01-24 13:30] LABS: A/G RATIO 1.0; ALANINE AMINOTRANSFERASE,ALT 22 U/L (12-36); ASPARTATE AMNIOTRANSFERASE,AST 16 IU/L (5-25); BILIRUBIN TOTAL 0.4 mg/dL (0.1-1.3); PROTEIN TOTAL,TP 6.5 g/dL (6.0-8.0)
[2025-01-24 13:35] LABS: D-DIMER QUANTITATIVE 0.5 mg/LFEU (0.0-0.59); INR 0.87 (1.00-1.24)
[2025-01-24 13:38] LABS: PRO B-TYPE NATRIUR PEPT,BNPPRO 472 pg/mL (<=125)
[2025-01-24 13:40] LABS: PTT,PARTIAL THROMBOPLSTIN TIME 23.7 SECONDS (24.4-33.2)
[2025-01-24 13:49] LABS: GLUCOSE,URINE >1000 mg/dL (NORMAL); OCCULT BLOOD,URINE MODERATE (NEGATIVE)
[2025-01-24 13:57] LABS: APPEARANCE,URINE CLEAR (CLEAR); SQUAMOUS EPITHELIAL CELLS,UR NOT SEEN (NS,R,O)
[2025-01-24 13:58] LABS: AMPHETAMINES SCREEN, URINE NEGATIVE (NEGATIVE); BUPRENORPHINE SCREEN,URINE NEGATIVE (NEGATIVE); METHADONE SCREEN, URINE NEGATIVE (NEGATIVE); METHAMPHETAMINE SCREEN, URINE NEGATIVE (NEGATIVE); OXYCODONE SCREEN,URINE NEGATIVE (NEGATIVE)
== END 2025-01-24 17:36 | disposition home or self-care (01) ==
LOC: FB.ED 12:40
DX: G20.B2 Parkinson's disease with dyskinesia, with fluctuations (principal); I10 Essential (primary) hypertension; J45.909 Unspecified asthma, uncomplicated; E78.00 Pure hypercholesterolemia, unspecified; J44.9 Chronic obstructive pulmonary disease, unspecified; Z91.041 Radiographic dye allergy status; Z79.51 Long term (current) use of inhaled steroids; Z79.899 Other long term (current) drug therapy; Z79.84 Long term (current) use of oral hypoglycemic drugs
CPT/HCPCS: 36415; 70450; 71045; 80053; 80307; 81001; 82947; 83605; 83735; 83880; 84443; 84484; 85025; 85379; 85610; 85730; 86140; 93005; 99285; A9270